=== PATIENT | male | born 1970 | race Native Hawaiian/Other Pacific Islander ===

== ENCOUNTER 2020-08-22 19:40 | Emergency (ER) | payer OTHER ==
[~2020-08-22] VITALS: Ht 165.1 cm; Wt 68.0 kg
[2020-08-22 20:02] LABS: PLATELET COUNT 239 K/uL (142-355)
[2020-08-22 20:09] LABS: POTASSIUM 3.6 mmol/L (3.6-5.2)
[2020-08-22 21:25] VITALS: BP 133/85; TEMP 98.1
[2020-08-22] MEDS ORDERED: LIPITOR10 MG PO (22:34)
[2020-08-22] MEDS ORDERED: BENZ1TAB43 PO (22:35)
[2020-08-22] MEDS ORDERED: CLON1TAB18 PO (22:36)
[2020-08-22] MEDS ORDERED: DECUBI-VITE PO (22:37)
[2020-08-22] MEDS ORDERED: DIVALPROEX500 M1 PO (22:38)
[2020-08-22] MEDS ORDERED: HALO5INJ3 INJ (22:39)
[2020-08-22] MEDS ORDERED: LACTULOSE10 GM/15 M PO (22:40)
[2020-08-22] MEDS ORDERED: LAMICTAL ODT25 MG PO (22:41)
[2020-08-22] MEDS ORDERED: ROWEEPRA1000 MG PO (22:42)
[2020-08-22] MEDS ORDERED: EUTHYROX100 MCG PO (22:43)
[2020-08-22] MEDS ORDERED: REMERON SOLTAB15 MG PO (22:45)
[2020-08-22] MEDS ORDERED: RIVASTIGMINE3 MG PO (22:46)
[2020-08-22] MEDS ORDERED: SENNA8.6 M1 PO (22:46)
[2020-08-22] MEDS ORDERED: SERT100T PO (22:48)
[2020-08-22] MEDS ORDERED: TRAZ50TA36 PO (22:48)
[2020-08-22] MEDS ORDERED: GEODON60 MG PO (22:51)
[2020-08-22] MEDS ORDERED: VITAMIN D1000 UNI1 PO (22:51)
[2020-09-10] MEDS ORDERED: ZIPR80CA PO (13:53)
[2020-09-10] MEDS ORDERED: PROPRANOLOL10 MG PO (13:54)
[2020-09-10] MEDS ORDERED: OLAN10INJ IM (13:54)
[2020-09-10] MEDS ORDERED: FAMOTIDINE20 MG PO (13:55)
[2020-09-10] MEDS ORDERED: DIVALPROEX500 MG PO (13:55)
[2020-09-10] MEDS ORDERED: DIVA250T PO (13:55)
[2020-09-10] MEDS ORDERED: MIRTAZAPINE7.5 MG PO (13:55)
[2020-09-10] MEDS ORDERED: MEDR2.5T19 PO (13:55)
[2020-09-10] MEDS ORDERED: HALO5TAB10 PO (13:55)
== END 2020-08-22 21:26 | disposition other institution (70) ==
LOC: ED 19:40
PROVIDERS: Family Medicine
DX: R44.1 Visual hallucinations (principal); R44.0 Auditory hallucinations; Z11.59 Encounter for screening for other viral diseases; Z04.6 Encounter for general psychiatric examination, requested by authority
CPT/HCPCS: 36415; 80053; 81000; 85027; 87635; 93005; 99285; U0003

== ENCOUNTER 2021-02-05 19:15 | Emergency (ER) | payer OTHER ==
[~2021-02-05] VITALS: Ht 170.2 cm; Wt 61.2 kg
[~2021-02-05 19:15] MED LIST: BENZ1TAB43 PO; CLON1TAB18 PO; DECUBI-VITE PO; DIVA250T PO; DIVALPROEX500 M1 PO; DIVALPROEX500 MG PO; EUTHYROX100 MCG PO; FAMOTIDINE20 MG PO; GEODON60 MG PO; HALO5INJ3 INJ; HALO5TAB10 PO; LACTULOSE10 GM/15 M PO; LAMICTAL ODT25 MG PO; LIPITOR10 MG PO; MEDR2.5T19 PO; MIRTAZAPINE7.5 MG PO; OLAN10INJ IM; PROPRANOLOL10 MG PO; REMERON SOLTAB15 MG PO; RIVASTIGMINE3 MG PO; ROWEEPRA1000 MG PO; SENNA8.6 M1 PO; SERT100T PO; TRAZ50TA36 PO; VITAMIN D1000 UNI1 PO; ZIPR80CA PO
[2021-02-05 19:47] LABS: PLATELET COUNT 252 K/uL (142-355)
[2021-02-05 19:59] LABS: POTASSIUM 4.2 mmol/L (3.6-5.2)
[2021-02-05 21:15] VITALS: BP 121/75; TEMP 99.5
[2021-02-05] MEDS ORDERED: DIVALPROEX DR PO (23:37)
[2021-02-05] MEDS ORDERED: LATUDA80 MG PO (23:38)
[2021-02-05] MEDS ORDERED: TRAZ50TA36 PO (23:39)
[2021-02-05] MEDS ORDERED: BUSPIRONE10 MG PO (23:41)
[2021-02-05] MEDS ORDERED: CLON0.5T36 PO (23:42)
[2021-02-05] MEDS ORDERED: HALO10TA5 PO (23:49)
[2021-02-05] MEDS ORDERED: [UNRECOGNIZED DRUG - OTHER] PO (23:51)
[2021-02-05] MEDS ORDERED: ONDA4TAB3 PO (23:52)
[2021-02-05] MEDS ORDERED: [UNRECOGNIZED DRUG - OTHER] INJ (23:55)
[2021-02-06] MEDS ORDERED: VITAMIN D PO ×2 (00:06→00:08)
[2021-02-06] MEDS ORDERED: DEPAKOTE DR PO (00:11)
[2021-02-27] MEDS ORDERED: VITAMIN D1000 UNI1 PO (09:41)
[2021-02-27] MEDS ORDERED: DIVALPROEX500 MG PO (09:42)
[2021-02-27] MEDS ORDERED: DIVA250T PO (09:42)
[2021-02-27] MEDS ORDERED: BENZ1TAB43 PO (09:43)
[2021-02-27] MEDS ORDERED: BUSP5TAB2 PO (09:43)
[2021-02-27] MEDS ORDERED: TRAZ50TA36 PO (09:44)
[2021-02-27] MEDS ORDERED: MEDR2.5T19 PO (09:45)
[2021-02-27] MEDS ORDERED: OLANZAPINE10 MG PO (09:46)
[2021-02-27] MEDS ORDERED: ESCI10TA PO (09:47)
[2021-02-27] MEDS ORDERED: HALO5TAB10 PO (09:47)
[2021-02-27] MEDS ORDERED: LACTSYP31 PO (09:48)
== END 2021-02-05 21:15 | disposition still patient (30) ==
LOC: ED 19:15
PROVIDERS: Hospitalist
DX: F25.8 Other schizoaffective disorders (principal); R46.89 Other symptoms and signs involving appearance and behavior; Z11.59 Encounter for screening for other viral diseases; Z04.6 Encounter for general psychiatric examination, requested by authority
CPT/HCPCS: 36415; 80053; 81000; 85027; 87635; 93005; 99283; U0003

== ENCOUNTER 2021-10-29 18:25 | Emergency (ER) | payer OTHER ==
[~2021-10-29] VITALS: Ht 170.2 cm; Wt 68.9 kg
[2021-10-29 18:25] VITALS: BP 128/71; TEMP 98
[~2021-10-29 18:25] MED LIST changes: +BUSP5TAB2 PO; +BUSPIRONE10 MG PO; +CLON0.5T36 PO; +DEPAKOTE DR PO; +DIVALPROEX DR PO; +ESCI10TA PO; +HALO10TA5 PO; +LACTSYP31 PO; +LATUDA80 MG PO; +OLANZAPINE10 MG PO; +ONDA4TAB3 PO; +VITAMIN D PO; +[UNRECOGNIZED DRUG - OTHER] INJ; +[UNRECOGNIZED DRUG - OTHER] PO
[2021-10-29 18:46] LABS: PLATELET COUNT 219 K/uL (142-355)
[2021-10-29 18:55] LABS: POTASSIUM 3.9 mmol/L (3.6-5.2)
[2021-10-30] MEDS ORDERED: ESCITALOPRAM10 MG PO (11:48)
[2021-10-30] MEDS ORDERED: MOBIC15 MG PO (11:49)
[2021-10-30] MEDS ORDERED: CLON0.5T36 PO (11:56)
[2021-10-30] MEDS ORDERED: DIVALPROEX250 M1 PO (12:02)
[2021-10-30] MEDS ORDERED: HALO5INJ3 IM (12:05)
[2021-10-30] MEDS ORDERED: ONDA4TAB3 PO (12:06)
== END 2021-10-29 19:30 | disposition still patient (30) ==
LOC: ED 18:29
PROVIDERS: Emergency Medicine
DX: F20.89 Other schizophrenia (principal); R45.1 Restlessness and agitation; R25.1 Tremor, unspecified; Z11.52 Encounter for screening for COVID-19; Z04.6 Encounter for general psychiatric examination, requested by authority
CPT/HCPCS: 80053; 81000; 85027; 87635; 93005; 99283; U0003

== ENCOUNTER 2022-05-19 22:09 | Emergency (ER) | payer OTHER ==
[~2022-05-19] VITALS: Ht 172.7 cm; Wt 73.5 kg
[~2022-05-19 22:09] MED LIST changes: +CHLO25IN IM; +DIVALPROEX250 M1 PO; +ESCITALOPRAM10 MG PO; +HALO50IN4 IM; +HALO5INJ3 IM; +MOBIC15 MG PO; +OXCARBAZEPIN300 MG PO; +PROP40TA53 PO; +QUET100T2 PO; +QUET300T PO
[2022-05-19 22:10] VITALS: BP 122/55; TEMP 99.4
[2022-05-19 22:46] LABS: PLATELET COUNT 241 K/uL (142-355)
[2022-05-19 22:58] LABS: POTASSIUM 3.9 mmol/L (3.6-5.2)
[2022-05-20] MEDS ORDERED: LEVO0.117 PO (01:40)
[2022-05-20] MEDS ORDERED: BENZTROPINE0.5 MG PO (01:45)
[2022-05-20] MEDS ORDERED: DIVALPROEX250 M1 PO (01:48)
[2022-05-20] MEDS ORDERED: SEROQUEL400 MG PO (04:11)
[2022-05-20] MEDS ORDERED: ZIPR20IN IM (04:15)
== END 2022-05-19 23:40 | disposition still patient (30) ==
LOC: ED 22:09
PROVIDERS: Emergency Medicine Emergency Medical Services
DX: R46.89 Other symptoms and signs involving appearance and behavior (principal); B35.6 Tinea cruris; Z11.52 Encounter for screening for COVID-19; Z04.6 Encounter for general psychiatric examination, requested by authority
CPT/HCPCS: 36415; 80053; 81002; 85027; 87635; 93005; 99283; U0003

== ENCOUNTER 2022-08-18 18:53 | Emergency (ER) | payer OTHER ==
[~2022-08-18] VITALS: Ht 175.3 cm; Wt 68.9 kg
[~2022-08-18 18:53] MED LIST changes: +ACET-206 PO; +ATOR20TA2 PO; +CHOL100034 PO; +CLOT1CRE11 TOP; +CONGENTIN 1MG TAB PO; +DIVALPROEX250 MG PO; +INDERAL 10MG TAB PO; +LEVE500T5 PO; +LEVO0.117 PO; +MAGNSUS68 PO; +MEDROXYPR AC10 MG PO; +MULTTAB52 PO; +RIVA1.5C PO; +SEROQUEL400 MG PO; +ZIPR20IN IM
[2022-08-18 19:00] VITALS: BP 116/83; TEMP 98.8
[2022-08-18 19:21] LABS: PLATELET COUNT 267 K/uL (142-355)
[2022-08-18 19:30] LABS: POTASSIUM 3.7 mmol/L (3.6-5.2)
[2022-08-19] MEDS ORDERED: HM VITAMIN D325 MCG PO (08:47)
[2022-08-19] MEDS ORDERED: CLON0.5T36 PO (08:47)
[2022-08-19] MEDS ORDERED: PEPCID40 MG PO (08:49)
[2022-08-19] MEDS ORDERED: ZIPR20CA PO (08:51)
[2022-08-19] MEDS ORDERED: HALO5INJ3 IM (08:52)
[2022-08-19] MEDS ORDERED: HALO50IN4 IM (08:56)
[2022-08-19] MEDS ORDERED: HALOPERIDOL DECANOAT IM (08:57)
[2022-08-19] MEDS ORDERED: HALO5TAB10 PO (08:58)
[2022-08-19] MEDS ORDERED: LACTULOSE 20 GM/30 ML PO (09:00)
[2022-08-19] MEDS ORDERED: PROVERA5 MG PO (09:01)
[2022-08-19] MEDS ORDERED: MAGNSUS68 PO (09:05)
[2022-08-19] MEDS ORDERED: OXCARBAZEPIN600 MG PO (09:06)
[2022-08-19] MEDS ORDERED: TRAZ50TA36 PO (09:07)
[2022-08-19] MEDS ORDERED: TYLENOL325 MG PO (09:08)
== END 2022-08-18 20:18 | disposition still patient (30) ==
LOC: ED 18:53
PROVIDERS: Emergency Medicine Emergency Medical Services
DX: F03.91 Unspecified dementia, unspecified severity, with behavioral disturbance (principal); R45.1 Restlessness and agitation; Z11.52 Encounter for screening for COVID-19; Z04.6 Encounter for general psychiatric examination, requested by authority
CPT/HCPCS: 80053; 85027; 87635; 93005; 99283; U0003